=== PATIENT | female | born 1960 | race Caucasian/White ===

== ENCOUNTER → 2019-05-01 | Outpatient (CLI) | payer BC ==
[~2019-05-01] MED LIST: B12; BUPIVACAINE 0.25% 30ML SDV INJ ONE; DEXAMETHASONE SOD PHOS INJ 4 MG/ML VIAL ONE; FENTANYL CITRATE/PF 100MCG/2 ML INJ ONE; LEVOTHYROXINE112 MCG PO; LIDOCAINE HCL 1% LOCAL INJ 20 ML VIAL ONE; LIDOCAINE HCL 2% LOCAL INJ 5 ML SDV VIAL INJ ONE; LOSARTAN POTAS100 MG PO; METOCLOPRAMIDE HCL 10 MG/2ML VIAL ONE; METOPROLOL SUCC50 MG PO; MIDAZOLAM HCL 2 MG/2 ML VIAL ONE; MORPHINE SULFATE INJ 10 MG/ML ONE; ONCE DAILY1 EACH; ONDANSETRON HCL INJ 2MG/ML 2ML 2 MG/ML VIAL ONE; PROMETHAZINE HCL (IM) 25 MG/ML VIAL ONE; PROPOFOL IV EMULSION 10 MG/ML 20 ML VIAL ONE; SEVOFLURANE INHAL SOLN 250 ML PEN BTL ONE; VITAMIN D31 GM
--- NOTE | 2019-05-01 12:23 | Diagnostic Imaging Report ---
#[id number] - [id number] NEEDLE LOCALIZATION RIGHT BREAST: 05/01/2019 Correlation is made to exams dated: 03/12/2019 stereotactic biopsy, 03/05/2019 mammogram, 03/05/2019 ultrasound and 02/25/2019 mammogram - [facility]. A needle localization was performed for the marker clip located in the right breast at 2 o'clock posterior depth. This was described on the previous mammography report. The skin was prepped in the usual manner. Local anesthetic was administered to the access site. A 5 cm Kopans needle/wire was inserted into the targeted area and the needle was removed, leaving the wire in place. Post placement imaging demonstrates the wire tip traverses the targeted clip, terminating 2.5 cm beyond the clip. IMPRESSION: NEEDLE LOCALIZATION Needle/wire localization for the marker clip in the right breast at 2 o'clock posterior depth was successful. Waiting for pathology results. A final report will be issued when these become available. SUGEY WILSON M.D. ct/:05/01/2019 10:49:02 Manager Marketing: Gail MARAVILLA)([place]), [facility] [id number]
--- NOTE | 2019-05-01 12:23 | Diagnostic Imaging Report ---
#[id number] - BRSPECRT SPECIMEN RIGHT BREAST: 05/01/2019 Correlation is made to exams dated: 05/01/2019 localization - [facility], 03/12/2019 stereotactic biopsy and 03/05/2019 mammogram - [facility]. A specimen was imaged for the previous biopsy clip/site located in the right breast at 2 o'clock posterior depth. This was described on the previous mammography report. IMPRESSION: SPECIMEN The imaged specimen includes a biopsy clip and the distal portion of the localization wire. Waiting for pathology results. A final report will be issued when these become available. SUGEY WILSON M.D. ct/:05/01/2019 11:57:04 Financial Services Auditor: Gail BENITEZ(R)(M), [facility]
== END ==
LOC: MAMMO 08:16
PROVIDERS: ATTEND Surgery
DX: N63.10 Unspecified lump in the right breast, unspecified quadrant (principal)
CPT/HCPCS: 19281; 76098; 88307; C1769; J1100; J2001 ×2; J2250; J2270; J2405; J2550; J2704; J2765; J3010

== ENCOUNTER → 2019-05-01 | Day surgery (SDC) | payer BC ==
[2019-04-15 10:56] LABS: BASOPHILS % 0.7 % (0.0-1.0); EOSINOPHILS # (AUTO) 0.2 (0.0-0.4); EOSINOPHILS % 2.9 % (0.0-6.0); HEMATOCRIT 37.9 % (34.2-44.1); HEMOGLOBIN 12.5 g/dL (12.0-16.0); LYMPHOCYTES # (AUTO) 1.4 (1.0-3.2); LYMPHOCYTES % 25.8 % (18.0-39.1); MEAN CORPUSCULAR HEMOGLOBIN 29.5 pg (28-32); MEAN CORPUSCULAR VOLUME 89.4 fL (81-99); MONOCYTES # (AUTO) 0.6 (0.2-0.8); MONOCYTES % 9.9 % (4.4-11.3); NEUTROPHILS # (AUTO) 3.4 (2.1-6.9); NEUTROPHILS % 60.3 % (38.7-80.0); PLATELET COUNT 240 x10e3/uL (140-360); RED BLOOD COUNT 4.24 x10e6/uL (3.6-5.1); RED CELL DISTRIBUTION WIDTH 12.4 % (11.7-14.4)
--- NOTE | 2019-04-15 11:17 | Diagnostic Imaging Report ---
EXAM: CHEST 2 VIEWS DATE: 04/15/2019 10:38 AM INDICATION: Preoperative/preadmission evaluation COMPARISON: None FINDINGS: The trachea is midline. The lungs are symmetrically expanded without evidence for large focal consolidation, pneumothorax, or significant pleural effusion. The cardiomediastinal silhouette and pulmonary vasculature are within normal limits. No acute osseous abnormality is identified. The surrounding soft tissues are unremarkable. IMPRESSION: No acute cardiopulmonary process identified. Signed by: Dr. Demarcus Barrios MD on 04/15/2019 11:14 AM
[2019-04-15 11:24] LABS: ALBUMIN 3.9 g/dL (3.5-5.0); ALBUMIN/GLOBULIN RATIO 1.1 (0.8-2.0); ANION GAP 10.1 mmol/L (8-16); CALCIUM 9.4 mg/dL (8.4-10.2); CREATININE, SERUM 1.17 mg/dL (0.57-1.11); POTASSIUM 4.1 mmol/L (3.5-5.1)
[~2019-05-01] MED LIST changes: -BUPIVACAINE 0.25% 30ML SDV INJ ONE; -DEXAMETHASONE SOD PHOS INJ 4 MG/ML VIAL ONE; -FENTANYL CITRATE/PF 100MCG/2 ML INJ ONE; -LIDOCAINE HCL 1% LOCAL INJ 20 ML VIAL ONE; -LIDOCAINE HCL 2% LOCAL INJ 5 ML SDV VIAL INJ ONE; -METOCLOPRAMIDE HCL 10 MG/2ML VIAL ONE; -MIDAZOLAM HCL 2 MG/2 ML VIAL ONE; -MORPHINE SULFATE INJ 10 MG/ML ONE; -ONDANSETRON HCL INJ 2MG/ML 2ML 2 MG/ML VIAL ONE; -PROMETHAZINE HCL (IM) 25 MG/ML VIAL ONE; -PROPOFOL IV EMULSION 10 MG/ML 20 ML VIAL ONE; -SEVOFLURANE INHAL SOLN 250 ML PEN BTL ONE
--- NOTE | 2019-05-01 12:15 | Operative Report ---
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 OPERATIONS PERFORMED: Right partial mastectomy with preoperative mammographic-guided needle localization and intraoperative specimen mammography. ANESTHESIA: General. COMPLICATIONS: None. ESTIMATED BLOOD LOSS: Minimal. DESCRIPTION OF PROCEDURE: With the patient lying in bed in the supine position under good general anesthesia, after having undergone a needle localization of the suspicious mass in the upper inner quadrant of the right breast, the right breast was prepped with Betadine solution and draped in the usual manner. The area overlying the wire was then infiltrated with 0.25% Marcaine solution. An incision was made and was carried down through the subcutaneous tissue. The wire was followed to the area in question, which was then widely resected with good margins all the way around. The specimen was sent for specimen mammography, which confirmed the area in question to be contained within the center of the specimen. The whole area was then thoroughly irrigated. Perfect hemostasis was ascertained. The breast tissue was then reapproximated with interrupted sutures of 2-0 chromic, and the skin was closed with subcuticular 5-0 Vicryl. Benzoin, Steri-Strips, and dressings were applied. The sponge, lap, and needle count was correct. The patient tolerated the procedure well and returned to the recovery room in stable condition. Rogelio Serrano MD JLR/MODL /[id number]
[2019-05-01 15:00] VITALS: BP 120/71
--- OUTSIDE RECORDS SUMMARY | 2019-05-06 09:18 | XMS REPORT ---
Author Author [facility] Address Unknown Phone Unavailable Care Team Providers Care Ortho Rn Name Role Phone Jasmyn BUENO Unavailable Unavailable Payers Payer Name Policy Type Policy Number Effective Date Expiration Date Problems This patient has no known problems. Allergies, Adverse Reactions, Alerts Allergy Name Allergy Type Status Severity Reaction(s) Onset Date Inactive Date Treating Clinician Comments No Known Drug Intolerances DA Active U 2010-04-13 00:00:00 No Known Contrast Allergies DA Active U 2008-04-19 00:00:00 No Known Drug Allergies DA Active U 2008-04-19 00:00:00 No Known Food Allergies DA Active U 2008-04-19 00:00:00 No Known Other Allergies DA Active U 2008-04-19 00:00:00 Medications This patient has no known medications. Encounters Start Date/Time End Date/Time Encounter Type Admission Type Attending Clinicians Care Facility Care Department Encounter ID 2018-03-22 09:36:10 2018-03-22 09:36:10 Outpatient [facility] [id number] 2016-12-26 00:00:00 2016-12-26 00:00:00 Outpatient [facility] [id number] 2016-10-31 00:00:00 2016-10-31 00:00:00 Outpatient [facility] [id number] 2016-09-11 00:00:00 2016-09-11 00:00:00 Outpatient [facility] [id number] Results Test Description Test Time Test Comments Text Results Atomic Results Result Comments BREAST SPECIMEN RT RADIOGRAPH 2019-05-01 11:20:00 [facility] [address] [address] Patient Name: ISAURA CROSS #: [id number] : 1960 Age/Sex: 58/F Req #: [id number] [facility] Physician: Ordered by: TIM BUENO MD Report #: [id number] Location: OR Room/Bed: Procedure: [id number] MG/BREAST SPECIMEN RT RADIOGRAPH Exam Date: 05/01/19 Exam Time: 1130 REPORT STATUS: Signed #[id number] - BRSPECRT SPECIMEN RIGHT BREAST: 05/01/2019 Correlation is made to exams dated: 05/01/2019 localization - [facility], 03/12/2019 stereotactic biopsy and 03/05/2019 mammogram - [facility]. A specimen was imaged for the previous biopsy clip/site located in the right breast at 2 o'clock posterior depth. This was described on the previous mammography report. IMPRESSION: SPECIMEN The imaged specimen includes a biopsy clip and the distal portion of the localization wire. Waiting for pathology results. A final report will be issued when these become available. SUGEY WILSON M.D. ct/:05/01/2019 11:57:04 Chargeback Specialist: Gail Cantu RT(R)(M), [facility] Dictated By: SUGEY WILSON MD 1157 Transcribed By: NYDIA on 05/01/19 1157 COPY TO: TIM BUENO MD PERQ DEVICE BRST 1ST IMAG-RT 2019-05-01 10:21:[address] [address] Patient Name: ISAURA CROSS MR #: [id number] : 1960 Age/Sex: 58/F Req #: [id number] Adm Physician: Ordered by: TIM BUENO MD Report #: [id number] Location: OR Room/Bed: Procedure: [id number] MG/PERQ DEVICE BRST 1ST IMAG-RT Exam Date: Exam Time: REPORT STATUS: Signed #[id number] - [id number] NEEDLE LOCALIZATION RIGHT BREAST: 05/01/2019 Correlation is made to exams dated: 03/12/2019 stereotactic biopsy, 03/05/2019 mammogram, 03/05/2019 ultrasound and 02/25/2019 mammogram - [facility]. A needle localization was performed for the marker clip located in the right breast at 2 o'clock posterior depth. This was described on the previous mammography report. The skin was prepped in the usual manner. Local anesthetic was administered to the access site. A 5 cm Kopans needle/wire was inserted into the targeted area and the needle was removed, leaving the wire in place. Post placement imaging demonstrates the wire tip traverses the targeted clip, terminating 2.5 cm beyond the clip. IMPRESSION: NEEDLE LOCALIZATION Needle/wire localization for the marker clip in the right breast at 2 o'clock posterior depth was successful. Waiting for pathology results. A final report will be issued when these become available. SUGEY WILSON M.D. ct/:05/01/2019 10:49:02 Chargeback Specialist: Gail aCntu RT(R)(M), [facility] [id number] Dictated By: SUGEY WILSON MD 48 Transcribed By: NYDIA on 05/01/191048 COPY TO: TIM BUENO MD CHEST 2 VIEWS 2019-04-15 11:13:00 [facility] [address] [address] Patient Name: ISAURA CROSS MR #: [id number] : 1960 Age/Sex: 58/F Req #: [id number] [facility] Physician: Ordered by: TIM BUENO MD Report #: [id number] Location: OR Room/Bed: Procedure: [id number] DX/CHEST 2 VIEWS Exam Date: Exam Time: REPORT STATUS: Signed EXAM: CHEST 2 VIEWS DATE: 04/15/2019 10:38 AM INDICATION: P reoperative/preadmission evaluation COMPARISON: None FINDINGS: The trachea is midline. The lungs are symmetrically expanded without evidence for large focal consolidation, pneumothorax, or significant pleural effusion. The cardiomediastinal silhouette and pulmonary vasculature are within normal limits. No acute osseous abnormality is identified. The surrounding soft tissues are unremarkable. IMPRESSION: No acute cardiopulmonary process identified. Signed by: Dr. Demarcus Barrios MD on 04/15/2019 11:14 AM Dictated By: DEMARCUS BARRIOS MD 13 Transcribed By: LUCY on 04/15/191113 COPY TO: TIM BUENO MD BREAST,BIOPSY 2019-03-14 17:22:00 RUN DATE: 03/14/19 [place] - Lab PAGE 1 RUN TIME: 1722 Specimen Inquiry RUN USER: INTERFACE PATIENT: ISAURA CROSS LOC: CARLOS #: [id number] AGE/SX: 58/F ROOM: RE03/12/19REG DR: Karlee Alberto MD : [birth year] BED: DIS: STATUS: PRE REF TLOC: SPEC #: [id number] RECD: 03/12/19 STATUS: VALENTINA ERNESTINA #: [id number] EMERY: 03/12/19-1340 [facility] DR: Karlee Alberto MD ENTERED: 03/12/19-1501 SP TYPE: BX BREAST OTHR DR: TUMOR REGISTRY ORDERED: GROSS COPIES TO: Karlee Alberto MD [address], [address] [place] [address] TUMOR REGISTRY MARKERS: MALIGNANCY PROCEDURES: GROSS (03/14/19-1534) TISSUES: BREAST CORE BIOPSY - RIGHT ARCHITECTUAL DISTORTION CLINICAL HISTORY COLLECTION DATE: 03/12/19 RIGHT BREAST ARCHITECTURAL DISTORTION COMMENT Multiple foci of DCIS with cribriform architecture are present in a background of increased stromal fibrosis. Prominent apocrine change is present in many areas but marked nuclear pleomorphism is not noted. The malignant cells have intermediate grade nuclear features. Patchy lumenal necrosis is present. No invasive malignancy is seen. Paraffin embedded tissue is submitted for additional studies and the results will be reported in an addendum. 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, INTERMEDIATE NUCLEAR GRADE (NUCLEAR GRADE 2), see comment INCREASED STROMAL FIBROSIS NO INVASIVE MALIGNANCY PRESENT MULTIPLE LEVELS EXAMINED ADDITIONAL STUDIES PENDING, ADDENDUM REPORT TO FOLLOW CONTINUED ON NEXT PAGE RUN DATE: 03/14/19 [place] [facility] PAGE 2 RUN TIME: 1722 Specimen Inquiry RUN USER: INTERFACE SPEC #: [id number] PATIENT: ISAURA CROSS #[id number] (Continued) FINAL DIAGNOSIS (Continued) JUAQUIN/collin Holley [address] MACROSCOPIC The specimen is received in formalin, labeled with the patient's name, "right breast distortion" and consists of multiple core biopsies of pale yellow-mae fibrofatty tissue measuring 3.0 x 3.0 x 0.25 cm in aggregate. The tissue is entirely submitted for histologic evaluation (1A-1B). GROSS PERFORMED AT [facility] [address] [place] [address] (P)[phone] MICROSCOPIC All of the stains, including any controls performed, stain appropriately. MICROSCOPIC PERFORMED AT [facility] [address] [place] [address] [phone])[phone] PERFORMING SITE Diagnosis performed at: [facility] [place] [address] [facility], [place] [address] Signed SIGNATURE ON FILE Waldo Sy MD 03/14/19 1722 END OF REPORT BREAST,BIOPSY 2019-03-14 17:22:00 RUN DATE: 03/17/19 [place] PAGE 1 RUN TIME: 6401 Specimen Inquiry RUN USER: INTERFACE PATIENT: ISAURA CROSS LOC: CARLOS Vargas #: [id number] AGE/SX: 58/F ROOM: RE03/12/19[facility] DR: Karlee Alberto MD : [birth year] BED: DIS: STATUS: PRE REF TLOC: SPEC #: [id number] RECD: 03/12/19 STATUS: VALENTINA RE #: [id number] EMERY: 03/12/19 [facility] DR: Karlee Alberto MD ENTERED: 03/12/19 SP TYPE: BX BREAST OTHR DR: TUMOR REGISTRY ORDERED: GROSS COPIES TO: Karlee Alberto MD [address], [address] [place] [address] TUMOR REGISTRY MARKERS: MALIGNANCY PROCEDURES: GROSS (03/14/19153) TISSUES: BREAST CORE BIOPSY - RIGHT ARCHITECTUAL DISTORTION ADDENDUM FINDINGS Addendum #1 Entered: 03/17/19 An IHC report is received from Number 100 Accession/Case No: [id number] and the interpretation is as follows: ER: NEGATIVE Tumor Stained: 0% Intensity: 0 Judit Score: 0 Internal Control: Present, Positive PgR: NEGATIVE Tumor Stained: 0% Inten sity: 0 Judit Score: 0 Internal Control: Present, Positive Please refer to Number 100 report Accession/Case No: [id number] for any additional information. CONTINUED ON NEXT PAGE RUN DATE: 03/17/19 [place] [facility] PAGE 2 RUN TIME: 1647 Specimen Inquiry RUN USER: INTERFACE SPEC #: [id number] PATIENT: ISAURA CROSS #[id number] (Continued) ADDENDUM FINDINGS (Continued) Addendum Signed SIGNATURE ON FILE Waldo Sy MD 03/17/19 1647 CLINICAL HISTORY COLLECTION DATE: 03/12/19 RIGHT BREAST ARCHITECTURAL DISTORTION COMMENT Multiple foci of DCIS with cribriform architecture are present in a background of increased stromal fibrosis. Prominent apocrine change is present in many areas but marked nuclear pleomorphism is not noted. The malignant cells have intermediate grade nuclear features. Patchy lumenal necrosis is present. No invasive malignancy is seen. Paraffin embedded tissue is submitted for additional studies and the results will be reported in an addendum. 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 The tissue is entirely submitted for histologic evaluation (1A-1B). GROSS PERFORMED AT [facility] [address] [place] [address] [phone])[phone] CONTINUED ON NEXT PAGE RUN DATE: 03/17/19 [facility] PAGE 3 RUN TIME: 1648 Specimen Inquiry RUN USER: INTERFACE SPEC #: [id number] PATIENT: ISAURA CROSS #[id number] (Continued) MICROSCOPIC All of the stains, including any controls performed, stain appropriately. MICROSCOPIC PERFORMED AT [facility] [address] [place] [address] (P)[phone] PERFORMING SITE Diagnosis performed at: [facility], [place] [address] [facility], [place] [address] Signed SIGNATURE ON FILE Waldo Sy MD 03/14/19 1722 END OF REPORT
== END | disposition home or self-care (01) ==
LOC: OR 05:00
PROVIDERS: ATTEND Surgery
DX: D05.11 Intraductal carcinoma in situ of right breast (principal); E03.9 Hypothyroidism, unspecified; K57.90 Diverticulosis of intestine, part unspecified, without perforation or abscess without bleeding; I12.9 Hypertensive chronic kidney disease with stage 1 through stage 4 chronic kidney disease, or unspecified chronic kidney disease; N18.3 Chronic kidney disease, stage 3 (moderate); Z01.810 Encounter for preprocedural cardiovascular examination; Z01.812 Encounter for preprocedural laboratory examination; Z01.818 Encounter for other preprocedural examination; Z86.19 Personal history of other infectious and parasitic diseases; Z87.891 Personal history of nicotine dependence
CPT/HCPCS: 36415; 71046; 80053; 85025; 93005